=== PATIENT | male | born 1995 | race Two or more races ===

== ENCOUNTER 2020-03-23 02:54 | Emergency (ER) | payer MEDICAID ==
[~2020-03-23] VITALS: Ht 175.3 cm; Wt 86.0 kg
[2020-03-23] MEDS ORDERED: IBUPROFEN 600MG TABLET PO ONE (04:45)
[2020-03-23] MEDS ORDERED: LIDOCAINE 1%/EPI 1:100,000 10 ML VIAL IJ ONE (04:45)
[2020-03-23] MEDS ORDERED: BACITRACIN ZINC OINT UDPKT TOP ONE (04:45)
[2020-03-23] MEDS ORDERED: LIDOCAINE HCL/EPINEPHRINE 1%-EPI 1:100,000 20 ML VIAL INFIL SCH (05:00)
[2020-03-23 08:01] VITALS: BP 130/80
== END 2020-03-23 07:55 | disposition home or self-care (01) ==
LOC: ER 02:54
DX: S01.81XA Laceration without foreign body of other part of head, initial encounter (principal); W50.1XXA Accidental kick by another person, initial encounter; Y93.89 Activity, other specified; Y92.89 Other specified places as the place of occurrence of the external cause; Y99.8 Other external cause status
CPT/HCPCS: 12011; 99283; J3490

== ENCOUNTER 2020-03-31 19:37 | Emergency (ER) | payer MEDICAID ==
[~2020-03-31] VITALS: Ht 177.8 cm; Wt 87.0 kg
[2020-03-31 21:10] VITALS: BP 124/79
== END 2020-03-31 21:10 | disposition home or self-care (01) ==
LOC: ER 19:37
DX: Z48.02 Encounter for removal of sutures (principal); R03.0 Elevated blood-pressure reading, without diagnosis of hypertension
CPT/HCPCS: 99281